=== PATIENT | male | born 2000 | race African-American/Black ===

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

== ENCOUNTER 2023-03-20 15:46 | Emergency (ER) | payer OTHER ==
--- NOTE | 2023-03-20 16:01 | ER ---
Nurse's Notes [facility] Name: Nima Erwin Age: 22 yrs Sex: Male : 2000 Arrival Date: 03/20/2023 Time: 15:46 Bed Waiting Private MD: Diagnosis: Other conjunctivitis Presentation: 03/20 15:58 Chief complaint: Left eye redness and drainage x 1 week. Denies injury. Coronavirus hb screen: At this time, the client does not indicate any symptoms associated with coronavirus-19. Ebola Screen: No symptoms or risks identified at this time. Initial Sepsis Screen: Does the patient meet any 2 criteria? No. Patient's initial sepsis screen is negative. Does the patient have a suspected source of infection? No. Patient's initial sepsis screen is negative. Risk Assessment: Do you want to hurt yourself or someone else? Patient reports no desire to harm self or others. Onset of symptoms was March 13, 2023. 15:58 Method Of Arrival: Ambulatory hb 15:58 Acuity: NEERAJ 4 hb Triage Assessment: 16:00 General: Appears in no apparent distress. Behavior is calm, cooperative. Pain: Pain hb currently is 8 out of 10 on a pain scale. Neuro: Level of Consciousness is awake, alert, obeys commands, Oriented to person, place, time, situation. Cardiovascular: Patient's skin is warm and dry. Respiratory: Respiratory effort is even, unlabored, Respiratory pattern is regular, symmetrical. Historical: - Allergies: 15:59 No Known Allergies; hb - Home Meds: 15:59 None [Active]; hb - PMHx: 15:59 None; hb - PSHx: 15:59 None; hb - Immunization history:: Adult Immunizations up to date. - Social history:: Smoking status: Patient denies any tobacco usage or history of. Vital Signs: 16:00 BP 126 / 76; Pulse 82; Resp 16; Temp 98.1; Pulse Ox 100% ; Weight 98.88 kg; Height 5 hb ft. 8 in. ; Pain 8/10; 16:00 Body Mass Index 33.15 (98.88 kg, 172.72 cm) hb 16:00 Pain Scale: Adult hb ED Course: 15:48 Patient arrived in ED. ts1 15:50 Clarita Castaneda FNP [facility] 15:50 Gualberto Pena MD is Attending Physician. [facility] 15:59 Triage completed. hb 16:00 Arm band placed on. hb Administered Medications: No medications were administered Outcome: 16:00 Discharge ordered by . [facility] 16:03 Discharged to home ambulatory. hb 16:03 Condition: stable 16:03 Discharge instructions given to patient, Instructed on discharge instructions, follow up and referral plans. medication usage, Demonstrated understanding of instructions, follow-up care, medications, Prescriptions given X 1. 16:04 Patient left the ED. hb Signatures: Nancy Perez RN RN Clarita Castaneda FNP [employer] NETWORK ADMINISTRATOR [facility] Pricila Huang, PAS PAS ts1
--- NOTE | 2023-03-20 16:01 | EDPHYS ---
Physician Documentation [facility] Name: Nima Erwin Age: 22 yrs Sex: Male : 2000 Arrival Date: 03/20/2023 Time: 15:46 Bed Waiting Private MD: CHRISTA Physician Gualberto Pena Historical: - Allergies: 03/20 15:59 No Known Allergies; hb - Home Meds: 15:59 None [Active]; hb - PMHx: 15:59 None; hb - PSHx: 15:59 None; hb - Immunization history:: Adult Immunizations up to date. - Social history:: Smoking status: Patient denies any tobacco usage or history of. Vital Signs: 16:00 BP 126 / 76; Pulse 82; Resp 16; Temp 98.1; Pulse Ox 100% ; Weight 98.88 kg; Height 5 hb ft. 8 in. ; Pain 8/10; 16:00 Body Mass Index 33.15 (98.88 kg, 172.72 cm) hb 16:00 Pain Scale: Adult hb MDM: 15:50 Patient medically screened. [facility] Administered Medications: No medications were administered Disposition Summary: 03/20/23 16:00 Discharge Ordered Location: Home [facility] Problem: new [facility] Symptoms: are unchanged [facility] Condition: Stable [facility] Diagnosis - Other conjunctivitis [facility] Followup: [facility] - With: Private Physician - When: 2 - 3 days - Reason: Recheck today's complaints Discharge Instructions: - Discharge Summary Sheet hb - Allergic Conjunctivitis, Adult [facility] - Bacterial Conjunctivitis, Adult 7 Forms: - Work release form hb - Medication Reconciliation Form [facility] - Thank You Letter [facility] - Antibiotic Education [facility] Prescriptions: - Erythromycin 5 mg/gram (0.5 %) Ophthalmic Ointment - apply 1 centimeter by OPHTHALMIC route 2-3 times daily for 7 days; 1 Each; [facility] Refills: 0, Product Selection Permitted Signatures: Nancy Perez, RN RN Clarita Melissa FNP FNP [facility]
[2023-03-20 16:08] VITALS: BP 126/76; TEMP 98.1; O2SAT 100
== END 2023-03-20 16:04 | disposition home or self-care (01) ==
LOC: ER 15:46
DX: H10.89 Other conjunctivitis (principal)

== ENCOUNTER 2023-07-02 09:20 | Emergency (ER) | payer OTHER, SELFPAY ==
--- NOTE | 2023-07-02 10:57 | ER ---
Nurse's Notes [facility] Name: Nima Erwin Age: 22 yrs Sex: Male : 2000 Arrival Date: 07/02/2023 Time: 09:20 Bed 6 Private MD: Diagnosis: SARS-associated coronavirus as the cause of diseases classified elsewhere;Influenza due to other identified influenza virus with other respiratory manifestations Presentation: 07/02 09:27 Chief complaint: Patient states: Runny nose, body aches, headache, cough since nj1 Wednesday. Girlfriend dx with COVID Wednesday. Pt states he cough bloody mucus this morning even though "cough has not been that bad". Coronavirus screen: Vaccine status: Patient reports receiving the 2nd dose of the covid vaccine. Ebola Screen: Patient denies travel to an Ebola-affected area in the 21 days before illness onset. 09:27 Method Of Arrival: Ambulatory [facility] 09:27 Initial Sepsis Screen: Does the patient meet any 2 criteria? No. Patient's initial [facility] sepsis screen is negative. Does the patient have a suspected source of infection? No. Patient's initial sepsis screen is negative. Risk Assessment: Do you want to hurt yourself or someone else? Patient reports no desire to harm self or others. 09:27 Acuity: NEERAJ 3 nj Historical: - Allergies: 09:37 No Known Allergies; nj1 - PMHx: 09:37 None; nj1 - PSHx: 09:37 None; nj1 - Immunization history:: Client reports receiving the 2nd dose of the Covid vaccine. - Social history:: Smoking status: Reported history of juuling and/or vaping. Screenin:48 [facility] ED Fall Risk Assessment (Adult) History of falling in the last 3 months, ko1 including since admission No falls in past 3 months (0 pts) Confusion or Disorientation No (0 pts) Intoxicated or Sedated No (0 pts) Impaired Gait No (0 pts) Mobility Assist Device Used No (0 pt) Altered Elimination No (0 pt) Score/Fall Risk Level 0 - 2 = Low Risk Oriented to surroundings, Maintained a safe environment, Educated pt \\T\\ family on fall prevention, incl call for assistance when getting out of bed, Assessed \\T\\ reinforced patient's understanding of fall precautions, Provided non-skid footwear, Hourly rounding (assess needs \\T\\ fall precautionary measures) done, Used ambulatory aids as needed (educated on \\T\\ assisted with), Used gait belt as appropriate. Abuse screen: Denies threats or abuse. Denies injuries from another. Nutritional screening: No deficits noted. Tuberculosis screening: No symptoms or risk factors identified. Assessment: 09:48 General: Appears in no apparent distress. uncomfortable, Behavior is calm, cooperative, ko1 appropriate for age. Pain: Complains of pain in sore throat. Neuro: No deficits noted. Cardiovascular: No deficits noted. Respiratory: No deficits noted. GI: No deficits noted. : No deficits noted. EENT: Reports nasal congestion nasal discharge that is watery. Derm: No deficits noted. Musculoskeletal: No deficits noted. Vital Signs: 09:27 BP 140 / 73; Pulse 63; Resp 18; Temp 98.2; Pulse Ox 99% on R/A; Weight 102.06 kg; nj1 Height 5 ft. 8 in. ; Pain 7/10; 11:06 BP 124 / 72; Pulse 64; Resp 18; Pulse Ox 99% on R/A; ko1 09:27 Body Mass Index 34.21 (102.06 kg, 172.72 cm) nj1 09:27 Pain Scale: Adult [facility] ED Course: 09:23 Patient arrived in ED. im 09:25 Gualberto Casper PA is PHCP. cp 09:25 Gualberto Casper PA is PHCP. cp 09:25 Merry Mcgill MD is Attending Physician. cp 09:37 Triage completed. nj1 09:37 Brinda Rodas, RN is Primary Nurse. ko1 09:38 Arm band placed on. nj1 09:43 COVID-19 SARS RT PCR Sent. ko1 09:43 Influenza Screen (a \\T\\ B) Sent. ko1 09:43 Strep Sent. ko1 09:48 Patient has correct armband on for positive identification. Bed in low position. Call ko1 light in reach. Side rails up X 1. Pulse ox on. NIBP on. Door closed. Noise minimized. Lights dimmed. Warm blanket given. 10:37 XRAY Chest Pa And Lat (2 Views) In Process Unspecified. EDMS 11:06 Provided Education on: na. ko1 11:06 No provider procedures requiring assistance completed. Patient did not have IV access ko1 during this emergency room visit. Administered Medications: No medications were administered Medication: 11:06 VIS not applicable for this client. ko1 Outcome: 10:57 Discharge ordered by . breanne 11:06 Discharged to home ambulatory. ko1 11:06 Condition: stable 11:06 Discharge instructions given to patient, Instructed on discharge instructions, follow up and referral plans. medication usage, Demonstrated understanding of instructions, follow-up care, medications, Prescriptions given X 3. 11:07 Patient left the ED. ko1 Signatures: Dispatcher [employer] EDMS Gualberto Casper PA PA cp Oliver, Kathy, RN RN ko1 Marizol Braswell RN RN nj1 Rocío Bone
--- NOTE | 2023-07-02 10:57 | EDPHYS ---
Physician Documentation [facility] Name: Nima Erwin Age: 22 yrs Sex: Male : 2000 Arrival Date: 07/02/2023 Time: 09:20 Bed 6 Private MD: ED Physician Merry Mcgill HPI: 07/02 09:45 This 22 yrs old Black Male presents to ER via Ambulatory with complaints of COVID cp symptoms/exposure. 09:45 The patient or guardian reports cough, that is intermittent, with productive sputum, cp that is bloody. Onset: The symptoms/episode began/occurred 2 day(s) ago. Associated signs and symptoms: Pertinent positives: sore throat, body aches, congestion, Pertinent negatives: chest pain, diarrhea, fever, vomiting. Severity of symptoms: in the emergency department the symptoms are unchanged despite home interventions. Reports girlfriend recently tested positive for COVID-19. Historical: - Allergies: 09:37 No Known Allergies; nj1 - PMHx: 09:37 None; nj1 - PSHx: 09:37 None; nj1 - Immunization history:: Client reports receiving the 2nd dose of the Covid vaccine. - Social history:: Smoking status: Reported history of juuling and/or vaping. ROS: 09:50 Constitutional: Positive for body aches, Negative for fever, poor PO intake. cp 09:50 Eyes: Negative for injury, pain, redness, and discharge. cp 09:50 ENT: Positive for sore throat, Negative for drainage from ear(s), ear pain, difficulty swallowing, difficulty handling secretions. 09:50 Cardiovascular: Negative for chest pain. 09:50 Respiratory: Positive for cough, hemoptysis, Negative for shortness of breath, wheezing. 09:50 Abdomen/GI: Negative for abdominal pain, vomiting, diarrhea, constipation. 09:50 Skin: Negative for rash. 09:50 Neuro: Negative for altered mental status, dizziness, headache, syncope, weakness. 09:50 All other systems are negative. Exam: 09:55 Constitutional: The patient appears in no acute distress, alert, awake, cp non-diaphoretic, non-toxic, well developed, well nourished. 09:55 Head/Face: Normocephalic, atraumatic. cp 09:55 Eyes: Periorbital structures: appear normal, Conjunctiva: normal, no exudate, no injection, Sclera: no appreciated abnormality, Lids and lashes: appear normal, bilaterally. 09:55 ENT: External ear(s): are unremarkable, Ear canal(s): are normal, clear, TM's: dullness, bilaterally, Nose: is normal, Mouth: Lips: moist, Oral mucosa: moist, Posterior pharynx: Airway: no evidence of obstruction, patent, Tonsils: no enlargement, no exudate, erythema, that is mild, exudate, is not appreciated. 09:55 Neck: ROM/movement: is normal, is supple, without pain, no range of motions limitations, no meningismus. 09:55 Chest/axilla: Inspection: normal. 09:55 Cardiovascular: Rate: normal, Rhythm: regular. 09:55 Respiratory: the patient does not display signs of respiratory distress, Respirations: normal, no use of accessory muscles, no retractions, labored breathing, is not present, Breath sounds: are clear throughout, no decreased breath sounds, no stridor, no wheezing. 09:55 Abdomen/GI: Inspection: abdomen appears normal, Palpation: abdomen is soft and non-tender, in all quadrants. 09:55 Skin: no rash present. Vital Signs: 09:27 BP 140 / 73; Pulse 63; Resp 18; Temp 98.2; Pulse Ox 99% on R/A; Weight 102.06 kg; nj1 Height 5 ft. 8 in. ; Pain 7/10; 11:06 BP 124 / 72; Pulse 64; Resp 18; Pulse Ox 99% on R/A; ko1 09:27 Body Mass Index 34.21 (102.06 kg, 172.72 cm) nj 09:27 Pain Scale: Adult nj1 MDM: 09:28 Patient medically screened. cp 10:51 Independent interpretation of the following test(s) in the Emergency Department X-Ray: cp My interpretation is images of chest negative for fracture. 10:56 Data reviewed: vital signs, nurses notes, lab test result(s), radiologic studies, plain cp films. 10:56 Differential diagnosis: bronchitis, flu, pneumonia, COVID-19. Antibiotic cp administration: Not indicated, the patient has a suspected viral illness. Counseling: I had a detailed discussion with the patient and/or guardian regarding the historical points, exam findings, and any diagnostic results supporting the discharge/admit diagnosis, lab results, radiology results, to return to the emergency department if symptoms worsen or persist or if there are any questions or concerns that arise at home. 07/02 09:36 Order name: Strep cp 07/02 09:36 Order name: Influenza Screen (a \T\ B); Complete Time: 10:23 cp 07/02 10:23 Interpretation: Reviewed. cp 07/02 09:36 Order name: COVID-19 SARS RT PCR; Complete Time: 10:23 cp 07/02 10:23 Interpretation: Normal except: SARSCOV2 RT PCR POSITIVE. cp 07/02 10:08 Order name: Throat Culture EDMS 07/02 10:23 Order name: XRAY Chest Pa And Lat (2 Views) cp Administered Medications: No medications were administered Disposition Summary: 07/02/23 10:57 Discharge Ordered Location: Home cp Problem: new cp Symptoms: are unchanged cp Condition: Stable cp Diagnosis - SARS-associated coronavirus as the cause of diseases classified elsewhere cp - Influenza due to other identified influenza virus with other respiratory cp manifestations Followup: cp - With: Private Physician - When: 2 - 3 days - Reason: Worsening of condition Discharge Instructions: - Discharge Summary Sheet cp - Influenza, Adult cp - COVID-19 cp - How to Protect Yourself and Others - [facility] (12/26/2021) cp - 10 Things You Can Do to Manage Your COVID-19 Symptoms at Home - [facility] (05/16/2021) cp - COVID-19: Quarantine and Isolation - [facility] (01/28/2022) cp - COVID-19: What to Do If You Are Sick - [facility] (01/20/2022) cp Forms: - Medication Reconciliation Form cp - Thank You Letter cp - Antibiotic Education cp - Prescription Opioid Use cp - Patient Portal Instructions cp - Leadership Thank You Letter cp Prescriptions: - Paxlovid 300 mg (150 mg x 2)-100 mg Oral Tablet, Dose Pack - take 1 dose pack by ORAL route per package directions; 30 tablet; Refills: 0, cp Product Selection Permitted - Ibuprofen 800 mg Oral Tablet - take 1 tablet by ORAL route every 8 hours As needed take with food; 30 tablet; cp Refills: 0, Product Selection Permitted - Tamiflu 75 mg Oral Capsule - take 1 tablet by ORAL route every 12 hours for 5 days; 10 tablet; Refills: 0, cp Product Selection Permitted Signatures: Dispatcher [employer] EDGualberto Cadena PA PA cp Jaco, Norma, RN RN nj1
[2023-07-02 11:12] VITALS: TEMP 98.2; O2SAT 99
[2023-07-02 11:13] VITALS: BP 124/72
--- NOTE | 2023-07-02 12:11 | RAD REPORT ---
EXAM DESCRIPTION: RAD - Chest Pa And Lat (2 Views) - 07/02/2023 10:35 am CLINICAL HISTORY: COUGH COMPARISON: No comparisons TECHNIQUE: PA and lateral views of the chest were obtained. FINDINGS: The lungs are clear. Heart size is normal and central vasculature is within normal limits. No pleural effusion or pneumothorax seen. No acute bony finding noted. IMPRESSION: No acute cardiopulmonary process.
== END 2023-07-02 11:07 | disposition home or self-care (01) ==
LOC: ER 09:20
DX: U07.1 COVID-19 (principal); J10.1 Influenza due to other identified influenza virus with other respiratory manifestations
CPT/HCPCS: 71046; 87070; 87081; 87635; 87804; 99283